=== PATIENT | female | born 1985 | race Hispanic/Latino ===

== ENCOUNTER 2017-02-02 13:25 | Emergency (ER) | payer SELFPAY | END 2017-02-02 14:01 | disposition left against medical advice (07) | LOC: ERS 13:25 | DX: Z53.21 Procedure and treatment not carried out due to patient leaving prior to being seen by health care provider (principal) ==

== ENCOUNTER 2017-05-07 18:13 | Emergency (ER) | payer SELFPAY | END 2017-05-07 19:36 | disposition home or self-care (01) | LOC: ERS 18:13 | DX: J10.1 Influenza due to other identified influenza virus with other respiratory manifestations (principal) | CPT/HCPCS: 99283 ==

== ENCOUNTER 2017-07-09 19:10 | Emergency (ER) | payer SELFPAY ==
[2017-07-09 19:33] LABS: #Eosinphils 0.1 thou/uL (0.0-0.7); #Lymphocytes 2.7 thou/uL (1.20-3.40); #Monocytes 0.5 thou/uL (0.11-0.59); #Neutrophils 6.5 thou/uL (1.40-6.50); %Basophils 0.2 % (0.0-1.0); %Eosinophils 1.2 % (0.0-10.0); %Lymphocytes 27.1 % (21.0-51.0); %Monocytes 5.4 % (0.0-10.0); %Neutrophils 66.2 % (42.0-75.0); Hemoglobin 12.5 g/dL (12.0-16.0); Mean Corpuscular HGB CONC 33.4 g/dL (32.0-36.0); Mean Corpuscular Hemoglobin 22.4 pg (27.0-31.0); Mean Corpuscular Volume 67.2 fl (81.0-99.0); Mean Platelet Volume 9.9 fL (7.4-10.4); Platelet Count 228 thou/uL (130-400); RBC Distribution Width 13.9 % (11.5-14.5); Red Blood Cell (RBC) Count 5.57 mill/uL (4.20-5.40); White Blood Cell (WBC) Count 9.9 thou/uL (4.8-10.8)
[2017-07-09 19:46] LABS: Hypochromia SLIGHT = 6-15 cells (100X) (0-5/hpf); Large Platelets SLIGHT; MDiff Complete? YES; Microcytosis SLIGHT = 6-15 cells (100X) (0-5/hpf); Ovalocytes SLIGHT = 2-5 cells (100X) (0-1/hpf); PLT Morphology Comment Appears Adequate; Polychromasia SLIGHT = 2-3 cells (100X) (0-2/hpf)
[2017-07-09 19:55] LABS: ALT (SGPT) 20 U/L (8-55); AST (SGOT) 19 U/L (5-34); Albumin 3.8 g/dL (3.5-5.0); Alkaline Phosphatase 86 U/L (40-150); Anion Gap 13 mmol/L (10-20); BUN (Urea Nitrogen) 13 mg/dL (7.0-18.7); Bilirubin, Total 0.3 mg/dL (0.2-1.2); Calc. Creatinine Clearance 0 mL/min (70-130); Calcium 9.1 mg/dL (7.8-10.44); Carbon Dioxide 21 mmol/L (22-29); Chloride 109 mmol/L (98-107); Estimated GFR-MDRD 81; Globulin 2.4 g/dL (2.4-3.5); Glucose 112 mg/dL (70-105); Protein, Total 6.2 g/dL (6.0-8.3); Sodium 139 mmol/L (136-145)
[2017-07-09 20:02] LABS: Bilirubin Negative (Negative); Blood, Urine Negative (Negative); Clarity CLEAR (Clear); Glucose, Urine (Dipstick) Negative (Negative); Leukocyte Negative (Negative); Nitrite Negative (Negative); Protein, Urine (Dipstick) Negative (Neg-Trace); Specific Gravity, Urine 1.008 (1.002-1.036); Urobilinogen 0.2 mg/dL (0.2-1.0); pH, Urine 6.5 (5.0-9.0)
[2017-07-09] MEDS ORDERED: Ondansetron HCl/PF 4 MG/2 ML Vial ONE (20:51)
[2017-07-09] MEDS ORDERED: Morphine 4 MG/ML VIAL ONE (20:51)
[2017-07-09 21:01] LABS: BHCG - Serum Negative (NEGATIVE); Pregs Control Background? CLEAR/WHITE (CLR/WHITE); Pregs Control Bar Appear? YES (CONTROL BAR)
[2017-07-09] MEDS ORDERED: Lidocaine 2% Viscous Solution 10 ML, Aluminum & Magnesium Hydroxide 20 ML, Donnatal Eli... SSW SCH ×3 (22:30)
--- NOTE | 2017-07-09 22:34 | CT ---
CT ABDOMEN AND PELVIS WITH IV CONTRAST 07/09/17 HISTORY: Periumbilical abdominal pain for two days. FINDINGS: Post cholecystectomy changes are noted. There is linear atelectasis versus scarring in the right middle lobe. Lung bases are otherwise clear. The heart is mildly enlarged. The abdominal aorta and iliac arteries are normal in caliber. The liver, spleen, pancreas, bilateral adrenal glands, kidneys, urinary bladder, uterus and adnexal s tructures demonstrate a normal CT appearance. The appendix is very small in caliber without CT evidence of appendicitis. There is a small fat containing periumbilical hernia just to the left of midline. There is no free fluid, fluid collections, or lymphadenopathy seen in the abdomen or pelvis. The osseous structures have a normal appearance. IMPRESSION: 1. Small fat containing periumbilical hernia. 2. Post cholecystectomy changes. 3. Mild cardiomegaly. POS: [facility]
[2017-07-09] MEDS ORDERED: Acetaminophen 500 MG TAB ONE (22:37)
[2017-07-09] MEDS ORDERED: Dicyclomine 20 MG TAB ONE (22:37)
[2017-07-09] MEDS ORDERED: Lidocaine Viscous Sol 2% 15 ml UD Cup ONE (22:37)
[2017-07-09] MEDS ORDERED: Mag-Al 1200 mg/1200 mg/30 ML UDCUP ONE (22:37)
== END 2017-07-09 23:30 | disposition home or self-care (01) ==
LOC: ERS 19:10
DX: K42.9 Umbilical hernia without obstruction or gangrene (principal)
CPT/HCPCS: 36415; 74177; 80053; 81003; 83605; 83690; 84703; 85025; 96361; 96374; 96375; J2270; J2405

== ENCOUNTER 2017-07-28 13:56 | Emergency (ER) | payer SELFPAY ==
[2017-07-28] MEDS ORDERED: Ondansetron ODT 4 MG TAB ONE ×2 (14:32→14:45)
[2017-07-28] MEDS ORDERED: Pantoprazole 40 MG VIAL ONE (14:32)
[2017-07-28 14:50] LABS: #Basophils 0.1 thou/uL (0.0-0.2); #Eosinphils 0.1 thou/uL (0.0-0.7); #Lymphocytes 1.7 thou/uL (1.20-3.40); #Monocytes 0.4 thou/uL (0.11-0.59); #Neutrophils 4.8 thou/uL (1.40-6.50); %Basophils 0.8 % (0.0-1.0); %Eosinophils 1.6 % (0.0-10.0); %Lymphocytes 23.7 % (21.0-51.0); %Monocytes 5.7 % (0.0-10.0); %Neutrophils 68.3 % (42.0-75.0); Hemoglobin 12.2 g/dL (12.0-16.0); Mean Corpuscular Hemoglobin 21.5 pg (27.0-31.0); Mean Corpuscular Volume 67.4 fl (81.0-99.0); Mean Platelet Volume 10.3 fL (7.4-10.4); Platelet Count 200 thou/uL (130-400); RBC Distribution Width 14.1 % (11.5-14.5); Red Blood Cell (RBC) Count 5.66 mill/uL (4.20-5.40); White Blood Cell (WBC) Count 7.1 thou/uL (4.8-10.8)
[2017-07-28 15:20] LABS: ALT (SGPT) 20 U/L (8-55); AST (SGOT) 19 U/L (5-34); Albumin 3.8 g/dL (3.5-5.0); Alkaline Phosphatase 71 U/L (40-150); Anion Gap 10 mmol/L (10-20); BUN (Urea Nitrogen) 7 mg/dL (7.0-18.7); Bilirubin, Total 0.4 mg/dL (0.2-1.2); Calc. Creatinine Clearance 0 mL/min (70-130); Carbon Dioxide 24 mmol/L (22-29); Chloride 109 mmol/L (98-107); Estimated GFR-MDRD 90; Globulin 2.2 g/dL (2.4-3.5); Glucose 92 mg/dL (70-105); Potassium 4.1 mmol/L (3.5-5.1); Sodium 139 mmol/L (136-145)
[2017-07-28 15:29] LABS: Bilirubin Negative (Negative); Blood, Urine Negative (Negative); Clarity CLEAR (Clear); Glucose, Urine (Dipstick) Negative (Negative); Leukocyte Negative (Negative); Nitrite Negative (Negative); Protein, Urine (Dipstick) Negative (Neg-Trace); Specific Gravity, Urine 1.006 (1.002-1.036); Urobilinogen 0.2 mg/dL (0.2-1.0)
[2017-07-28 15:34] LABS: Pregnancy Test - Urine (BHCG) Negative (Negative); Pregu Control Background? CLEAR/WHITE (CLR/WHITE); Pregu Control Bar Appear? YES (CONTROL BAR); Specific Gravity 1.006 (1.002-1.036)
== END 2017-07-28 16:43 | disposition home or self-care (01) ==
LOC: ERS 13:56
DX: R11.2 Nausea with vomiting, unspecified (principal); R10.9 Unspecified abdominal pain
CPT/HCPCS: 36415; 80053; 81003; 81025; 85025; 96361; 96374; C9113; Q0162

== ENCOUNTER 2018-01-04 15:52 | Emergency (ER) | payer SELFPAY ==
[2018-01-04] MEDS ORDERED: Promethazine HCl 25 MG/ML VIAL ONE (16:46)
[2018-01-04] MEDS ORDERED: diphenhydrAMINE 50 MG CAP ONE (16:47)
[2018-01-04 16:50] LABS: Hemoglobin 12.1 g/dL (12.0-16.0); Mean Corpuscular HGB CONC 33.1 g/dL (32.0-36.0); Mean Corpuscular Hemoglobin 21.8 pg (27.0-31.0); Mean Corpuscular Volume 65.7 fL (78.0-98.0); Mean Platelet Volume 10.1 fL (7.4-10.4); Platelet Count 228 thou/uL (130-400); RBC Distribution Width 13.5 % (11.5-14.5); Red Blood Cell (RBC) Count 5.57 mill/uL (4.20-5.40); White Blood Cell (WBC) Count 8.9 thou/uL (4.8-10.8)
[2018-01-04 16:57] LABS: ALT (SGPT) 16 U/L (8-55); AST (SGOT) 19 U/L (5-34); Albumin 4.4 g/dL (3.5-5.0); Alkaline Phosphatase 71 U/L (40-150); Anion Gap 12 mmol/L (10-20); BUN (Urea Nitrogen) 9 mg/dL (7.0-18.7); Bilirubin, Total 0.5 mg/dL (0.2-1.2); Calc. Creatinine Clearance 0 mL/min (70-130); Calcium 9.5 mg/dL (7.8-10.44); Carbon Dioxide 21 mmol/L (22-29); Chloride 112 mmol/L (98-107); Estimated GFR-MDRD Greater than 90; Globulin 2.9 g/dL (2.4-3.5); Glucose 97 mg/dL (70-105); Potassium 3.8 mmol/L (3.5-5.1); Protein, Total 7.3 g/dL (6.0-8.3); Sodium 141 mmol/L (136-145)
[2018-01-04 17:36] LABS: #Eosinphils 0.1 thou/uL (0.0-0.7); #Lymphocytes 2.4 thou/uL (1.20-3.40); #Monocytes 0.5 thou/uL (0.11-0.59); %Basophils 0.4 % (0.0-1.0); %Eosinophils 0.9 % (0.0-10.0); %Lymphocytes 26.7 % (21.0-51.0); %Monocytes 5.4 % (0.0-10.0); %Neutrophils 66.6 % (42.0-75.0); MDiff Complete? YES; Microcytosis SLIGHT = 6-15 cells (100X) (0-5/hpf); PLT Morphology Comment Appears Adequate
== END 2018-01-04 19:07 | disposition home or self-care (01) ==
LOC: ERS 15:52
DX: G43.909 Migraine, unspecified, not intractable, without status migrainosus (principal)
CPT/HCPCS: 80053; 85025; 85652; 86140; 96365; 96366; J2550

== ENCOUNTER 2018-02-22 08:00 | Emergency (ER) | payer SELFPAY ==
[2018-02-22] MEDS ORDERED: predniSONE 20 MG TAB ONE (08:31)
--- NOTE | 2018-02-22 08:36 | RAD ---
PORTABLE CHEST ONE VIEW: Date: 02-22-18 Time: 7:21 a.m. History: Cough, congestion, shortness of breath. FINDINGS: The heart size is normal. The lungs are expanded without focal areas of consolidation, pneumothorax, or pleural effusions. IMPRESSION: No radiographic evidence of acute cardiopulmonary process. POS: [facility]
== END 2018-02-22 09:32 | disposition home or self-care (01) ==
LOC: ERS 08:00
DX: J06.9 Acute upper respiratory infection, unspecified (principal); G43.909 Migraine, unspecified, not intractable, without status migrainosus
CPT/HCPCS: 71045; 87804; 94640; J7506; J7620

== ENCOUNTER 2018-04-16 13:31 | Emergency (ER) | payer SELFPAY ==
[2018-04-16] MEDS ORDERED: diphenhydrAMINE 50 MG/ML VIAL ONE (15:44)
[2018-04-16] MEDS ORDERED: Ketorolac Tromethamine 30 MG/ML VIAL ONE (15:45)
[2018-04-16] MEDS ORDERED: methylPREDNISolone Sod Succ/PF 125 MG/2 ML VIAL ONE (15:45)
[2018-04-16] MEDS ORDERED: Metoclopramide HCl 10 MG/2 ML VIAL ONE ×2 (15:45→16:07)
== END 2018-04-16 16:52 | disposition home or self-care (01) ==
LOC: ERS 13:31
DX: G43.909 Migraine, unspecified, not intractable, without status migrainosus (principal)
CPT/HCPCS: 96365; 96375; J1200; J1885; J2765; J2930

== ENCOUNTER 2018-06-26 17:05 | Emergency (ER) | payer BC, SELFPAY | END 2018-06-26 17:45 | disposition home or self-care (01) | LOC: ERS 17:05 | DX: S46.912A Strain of unspecified muscle, fascia and tendon at shoulder and upper arm level, left arm, initial encounter (principal); X50.0XXA Overexertion from strenuous movement or load, initial encounter | CPT/HCPCS: 99283 ==

== ENCOUNTER 2018-07-18 12:27 | Emergency (ER) | payer BC ==
--- NOTE | 2018-07-18 13:24 | RAD ---
CHEST 2 VIEWS: Date: 07/18/18 COMPARISON: 04/29/16. HISTORY: Cough. FINDINGS: Heart size and mediastinum are within normal limits. The lungs are clear of any infiltrative process. No significant bony findings. IMPRESSION: No active intrathoracic disease. POS: [facility]
== END 2018-07-18 14:30 | disposition home or self-care (01) ==
LOC: ERS 12:27
DX: R05 Cough (principal); G43.909 Migraine, unspecified, not intractable, without status migrainosus
CPT/HCPCS: 71046; 87804

== ENCOUNTER 2019-04-27 08:52 | Emergency (ER) | payer BC, SELFPAY ==
[2019-04-27] MEDS ORDERED: Ketorolac Tromethamine 30 MG/ML VIAL ONE (10:42)
[2019-04-27] MEDS ORDERED: Fentanyl 100 MCG/2 ML VIAL ONE (10:42)
[2019-04-27] MEDS ORDERED: Metoclopramide HCl 10 MG/2 ML VIAL ONE (10:42)
[2019-04-27] MEDS ORDERED: Dexamethasone 10 MG/ML VIAL ONE (10:42)
== END 2019-04-27 12:00 | disposition home or self-care (01) ==
LOC: ERS 08:52
DX: G43.909 Migraine, unspecified, not intractable, without status migrainosus (principal)
CPT/HCPCS: 96365; 96375; J1100; J1885; J2765; J3010

== ENCOUNTER 2019-06-19 16:13 | Outpatient (CLI) | payer OTHER ==
--- NOTE | 2019-06-19 16:35 | RAD ---
XR Hand Rt 3 View STANDARD HISTORY: Injury, right hand pain FINDINGS: No fracture or dislocation is identified.
== END 2019-06-19 16:14 | disposition home or self-care (01) ==
LOC: BICRAD 16:13
DX: S69.91XA Unspecified injury of right wrist, hand and finger(s), initial encounter (principal)

== ENCOUNTER 2021-01-27 11:36 | Emergency (ER) | payer SELFPAY ==
[2021-01-27 18:55] LABS: SARS-CoV-2 PCR by NAA Not Detected (NotDetected)
== END 2021-01-27 12:20 | disposition home or self-care (01) ==
LOC: ERS 11:36
DX: B34.9 Viral infection, unspecified (principal); Z20.822 Contact with and (suspected) exposure to COVID-19
CPT/HCPCS: 99283; U0003; U0005

== ENCOUNTER 2024-02-20 14:32 | Emergency (ER) | payer BC ==
[2024-02-20 16:29] LABS: #Basophils 0.05 10x3/uL (0.0-0.2); %Basophils 0.5 % (0.0-1.0); %Eosinophils 0.6 % (0.0-10.0); %Lymphocytes 13.4 % (21.0-51.0); %Monocytes 8.5 % (0.0-10.0); %Neutrophils 76.8 % (42.0-75.0); Hematocrit 39.1 % (36.0-47.0); Hemoglobin 12.7 g/dL (12.0-16.0); Mean Corpuscular HGB CONC 32.5 g/dL (32.0-36.0); Mean Corpuscular Hemoglobin 21.4 pg (27.0-31.0); Mean Corpuscular Volume 65.8 fL (78.0-98.0); Mean Platelet Volume 10.5 fL (7.4-10.4); Platelet Count 282 10x3/uL (130-400); RBC Distribution Width 15.3 % (11.5-14.5); Red Blood Cell (RBC) Count 5.94 mill/uL (4.20-5.40)
[2024-02-20 16:47] LABS: BHCG - Serum Negative (NEGATIVE); Pregs Control Background? CLEAR/WHITE (CLR/WHITE); Pregs Control Bar Appear? YES (CONTROL BAR)
[2024-02-20 16:49] LABS: ALT (SGPT) 19 U/L (8-55); AST (SGOT) 24 U/L (5-34); Albumin 3.9 g/dL (3.5-5.0); Alkaline Phosphatase 83 U/L (40-110); Anion Gap 15 mmol/L (10-20); BUN (Urea Nitrogen) 11 mg/dL (7.0-18.7); Bilirubin, Total 0.5 mg/dL (0.2-1.2); Calc. Creatinine Clearance 0 mL/min (70-130); Calcium 9.3 mg/dL (7.8-10.44); Carbon Dioxide 17 mmol/L (22-29); Chloride 111 mmol/L (98-107); Estimated GFR 79; Globulin 3.1 g/dL (2.4-3.5); Glucose 99 mg/dL (70-105); Potassium 3.9 mmol/L (3.5-5.1); Sodium 139 mmol/L (136-145)
[2024-02-20 16:55] LABS: Troponin I Less than 0.010 ng/mL (< 0.028)
[2024-02-20] MEDS ORDERED: Dexamethasone 10 MG/ML VIAL ONE (16:55)
[2024-02-20] MEDS ORDERED: Ipratropium/Albuterol 3 ML NEB ONE (16:57)
== END 2024-02-20 18:30 | disposition home or self-care (01) ==
LOC: ERS 14:32
DX: B34.9 Viral infection, unspecified (principal)
CPT/HCPCS: 36415; 71045; 80053; 84484; 84703; 85025; 87428; 93005; 94640; 96372; J1100; J7620